=== PATIENT | female | born 2000 | race Caucasian/White ===

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

== ENCOUNTER 2022-04-24 22:56 | Emergency (ER) | payer MEDICAID, SELFPAY ==
[2022-04-24 22:57] VITALS: BP 137/90; PULSE 127; RESP 16; TEMP 36.2; O2SAT 99; BMI 37.8
--- NOTE | 2022-04-24 23:18 | EDS_ITS ---
HPI History of Present Illness Chief Complaint: General Illness Narrative Narrative: Patient is a 21-year-old female who was recently started on lamotrigine. She states that today she noticed a small rash on the tops of her feet. She states she called her doctor who prescribed and was informed that there is a severe reaction that can occur and she advised her to go get checked out as she has a rash present. Patient states she was no trouble breathing or swallowing and states there is no other exposures besides the new lamotrigine medication. She also reports she has had 2 to 3 days of loose stool/diarrhea. But denies any recent antibiotic use travel outside the country or livestock exposure. [facility] Medical History Anemia Anxiety Asthma Depression Migraines Home Medications sertraline 100 mg tablet 200 mg PO DAILY 07/12/20 [History Last Taken Unknown] lamotrigine 25 mg tablet 1 tab PO DAILY 04/24/22 [History Last Taken Unknown] ondansetron 4 mg disintegrating tablet 4 mg PO Q8H PRN nausea and vomiting #21 tabs 04/24/22 [Rx Last Taken Unknown] Allergy/AdvReac Type Severity Reaction Status Date / Time No Known Allergies Allergy Verified 04/24/22 22:59 Social History Smoking Status: Never smoker [facility] ED Constitutional Constitutional ED: Denies chills or fever(s) ENT ENT ED: Denies sore throat Cardiovascular Cardiovascular: Denies chest pain Respiratory/Chest Respiratory/Chest: Denies cough or dyspnea Gastrointestinal Gastrointestinal: Reports nausea; Denies abdominal pain, diarrhea or vomiting Genitourinary Genitourinary ED: Denies dysuria Musculoskeletal Musculoskeletal: Denies myalgias Integumentary Reports rash Neurologic Neurologic: Denies headache(s) Hematologic/Lymphatic Hematologic/Lymphatic: Denies easy bleeding or easy bruising EXAM Physical Exam Const Vital Signs: 04/24/22 22:57 04/24/22 23:14 Temperature 97.1 F L Temperature Source Temporal Pulse Rate 127 H Respiratory Rate 16 Respiratory Pattern Normal Blood Pressure 137/90 H Blood Pressure Mean 105 Pulse Ox 99 Oxygen Delivery Method Room Air Positive well nourished and well developed General Appearance ED: well developed HEENT HEENT Narrative: Mucous membranes are slightly dry and tacky and there is no oral lesions no tongue or lip swelling no airway edema or compromise Eyes PERRL and EOMs intact bilaterally Neck supple Resp normal respiratory effort and clear to auscultation bilaterally Cardio regular rhythm Rate: tachycardic GI non-tender and non-distended Auscultation: hyperactive bowel sounds Palpation: soft Extremity normal to inspection Neuro oriented x3 and CN's II-XII intact bilaterally Sensorium / Orientation: alert Psych Psych Narrative: Nervous/anxious affect Skin Skin Narrative: Patient has faint erythematous punctate blanchable lesions to the dorsal aspect of bilateral feet without secondary changes to suggest infection. No involvement of the palms or soles. Rash is not present on any other part of the body MDM MDM MDM Narrative Medical decision making narrative: Patient presented to the ER tachycardic but states she is extremely nervous. The rash is only located on the dorsal aspects of both feet it does not involve the palms or soles there is no other signs of the rash across the chest abdomen or back. Therefore this time I do not feel this is an acute allergic reaction and patient does not have any signs of anaphylaxis or respiratory distress. She reported a few days of loose stool/diarrhea so I did offer basic laboratory stud ies and IV hydration. Patient states that she does not like needles and as my exam shows no signs of anaphylaxis and only mild dehydration she prefer to hydrate orally. Patient was advised to continue her lamotrigine as I feel the reaction is not related to it and otherwise she is safe for discharge Discharge Plan Triage Chief Complaint: General Illness ED Provider: Eris Finley Dx/Rx/DC Orders Clinical Impression: Rash and nonspecific skin eruption, Nausea alone Instructions: Nausea Vomit Control Prescriptions: New ondansetron 4 mg tablet,disintegrating 4 mg PO Q8H PRN (Reason: nausea and vomiting) Qty: 21 0RF No Action sertraline 100 MG tablet 200 mg PO DAILY lamotrigine 25 mg tablet 1 tab PO DAILY Label Comments: take 1 tablet by mouth daily for 14 days then take 2 tablets by mouth daily Primary Care Provider: Ruddy Raya Referrals: Ruddy Raya MD [Primary Care Provider] - Activity Restrictions/Additional Instructions: Please continue lamotrigine as the rash does not appear to be related to taking the medication. Please return to the ER should you have any further concerns Disposition Disposition: Home, Self Care
[2022-04-24] MEDS: Ondansetron ODT 4 MG Tablet PO (23:44)
[2022-04-24 23:47] VITALS: BP 118/74; PULSE 75; RESP 16; O2SAT 97
== END 2022-04-24 23:48 | disposition home or self-care (01) ==
PROVIDERS: Emergency Provider Emergency Medicine; PCP Family Medicine; Visit Provider Emergency Medicine
DX: R21 Rash and other nonspecific skin eruption (principal); R11.0 Nausea; Z79.899 Other long term (current) drug therapy
CPT/HCPCS: 99282